=== PATIENT | female | born 1990 | race Caucasian/White ===

== ENCOUNTER 2018-12-29 08:56 | Outpatient (CLI) | payer BC ==
[2018-12-29 09:50] LABS: URINE AMPHETAMINES SCREEN NEGATIVE; URINE BARBITURATES SCREEN NEGATIVE; URINE BENZODIAZEPINES SCREEN NEGATIVE; URINE COCAINE SCREEN NEGATIVE; URINE MARIJUANA (THC) SCREEN NEGATIVE; URINE METHADONE SCREEN NEGATIVE; URINE PHENCYCLIDINE SCREEN NEGATIVE
[2018-12-29 09:54] LABS: UR PRO/CREAT RATIO RESULT 0.6 mg/mg (0.0-0.2); URINE CREATININE 24.2 mg/dL (16-327)
[2018-12-29 10:11] LABS: ABSOLUTE EOSINOPHILS # (AUTO) 0.1 10^3/uL (0.0-0.6); ABSOLUTE LYMPHOCYTES (AUTO) 1.5 10^3/uL (0.5-4.7); ABSOLUTE MONOCYTES (AUTO) 0.7 10^3/uL (0.1-1.4); BASOPHILS % (AUTO) 0.2 % (0-2); EOSINOPHILS % (AUTO) 0.8 % (0-6); HEMATOCRIT 40.4 % (36.0-47.0); HEMOGLOBIN 13.8 g/dL (12.0-15.5); LYMPHOCYTES % (AUTO) 18.4 % (13-45); MEAN CORPUSCULAR HEMOGLOBIN 30.8 pg (27.0-33.4); MEAN CORPUSCULAR HGB CONC 34.2 g/dL (32.0-36.0); MEAN CORPUSCULAR VOLUME 90 fl (80-97); MONOCYTES % (AUTO) 8.2 % (3-13); PLATELET COUNT 119 10^3/uL (150-450); RED BLOOD COUNT 4.49 10^6/uL (3.72-5.28); RED CELL DISTRIBUTION WIDTH 14.4 % (11.5-14.0); SEGMENTED NEUTROPHILS % (AUTO) 72.4 % (42-78); TOTAL CELLS COUNTED % (AUTO) 100 %; WHITE BLOOD COUNT 8.3 10^3/uL (4.0-10.5)
[2018-12-29 10:32] LABS: ALBUMIN 3.3 g/dL (3.5-5.0); ALKALINE PHOSPHATASE 161 U/L (38-126); ANION GAP 8 (5-19); ASPARTATE AMINO TRANSFERASE 29 U/L (14-36); BILIRUBIN,DIRECT 0.1 mg/dL (0.0-0.4); BILIRUBIN,TOTAL 0.3 mg/dL (0.2-1.3); BLOOD UREA NITROGEN 7 mg/dL (7-20); CALCIUM 8.9 mg/dL (8.4-10.2); CARBON DIOXIDE 21 mmol/L (22-30); CHLORIDE 106 mmol/L (98-107); GLUCOSE 86 mg/dL (75-110); TOTAL PROTEIN 5.6 g/dL (6.3-8.2); URIC ACID 4.8 mg/dL (2.5-6.2)
--- NOTE | 2018-12-29 11:00 | Progress Note ---
Provider Note Provider Note: c/w dr argueta about asymptomatic for pre-e, low platelet and high pr/cr. he advised 24h urine to return to [facility] tomorrow with BP checks and 24h urine result.
== END 2018-12-29 11:05 | disposition home or self-care (01) ==
LOC: LC 08:56
PROVIDERS: ATTEND Obstetrics & Gynecology Gynecology
PROC: 4A1HXCZ Monitoring of Products of Conception, Cardiac Rate, External Approach (ICD-10-PCS; principal; 2018-12-29)
DX: Z36.89 Encounter for other specified antenatal screening (principal)
CPT/HCPCS: 36415; 80053; 80307; 82570; 83615; 84156; 84550; 85025

== ENCOUNTER 2018-12-30 11:43 | Outpatient (CLI) | payer BC ==
[2018-12-30 12:40] LABS: 24 HOUR URINE PROTEIN RESULT 165 mg/day (42-225)
--- NOTE | 2018-12-30 12:59 | Non Stress Test Report ---
Non Stress Test Datetime Report Generated by CPN: 12/30/2018 12:58 DEMOGRAPHIC Test Number: 1 EGA NST: 38.3 INDICATION Indication for Study: Ordered by Provider MONITORING Monitor Explained: Monitor Explained; Test Explained; Patient Verbalized Understanding Time on Monitor: 12/30/2018 12:12 Time off Monitor: 12/30/2018 12:45 NST Duration: 33 NST INTERVENTIONS NST Interventions: PO Hydration; Reposition Patient Physician Notified NST: JCox, CNM BABY A: [id number] BABY A Movement : Present Contraction Frequency : None FHR Baseline : 145 Accelerations : 15X15 Decelerations : None Variability : Moderate 6-25bpm NST Review: Meets Criteria for Reactive NST NST Review and Verified By : ELIEZER Cordoba Results: Reactive NST REPORT Report Trigger: Send Report
== END 2018-12-30 12:50 | disposition home or self-care (01) ==
LOC: LC 11:43
PROVIDERS: ATTEND Student in an Organized Health Care Education/Training Program
PROC: 4A1HXCZ Monitoring of Products of Conception, Cardiac Rate, External Approach (ICD-10-PCS; principal; 2018-12-30)
DX: Z34.83 Encounter for supervision of other normal pregnancy, third trimester (principal)
CPT/HCPCS: 59025; 84156

== ENCOUNTER 2018-12-31 22:19 | Outpatient (CLI) | payer BC ==
[2018-12-31 22:55] LABS: APPEARANCE,URINE CLEAR; BILIRUBIN,URINE NEGATIVE (NEGATIVE); COLOR,URINE STRAW; GLUCOSE, URINE NEGATIVE (NEGATIVE); KETONES,URINE NEGATIVE (NEGATIVE); LEUKOCYTE ESTERASE,URINE TRACE (NEGATIVE); NITRITE,URINE NEGATIVE (NEGATIVE); PROTEIN,URINE NEGATIVE (NEGATIVE); URINE SPECIFIC GRAVITY 1.009; UROBILINOGEN,URINE NEGATIVE mg/dL (<2.0)
[2018-12-31 23:12] LABS: URINE AMPHETAMINES SCREEN NEGATIVE; URINE BARBITURATES SCREEN NEGATIVE; URINE BENZODIAZEPINES SCREEN NEGATIVE; URINE COCAINE SCREEN NEGATIVE; URINE MARIJUANA (THC) SCREEN NEGATIVE; URINE METHADONE SCREEN NEGATIVE; URINE PHENCYCLIDINE SCREEN NEGATIVE
--- NOTE | 2019-01-01 00:02 | Non Stress Test Report ---
Non Stress Test Datetime Report Generated by CPN: 01/01/2019 00:01 DEMOGRAPHIC EGA NST: 38.4 INDICATION Indication for Study: Ordered by Provider; Other Indication for Study (NST) Other: LC URINE RESULTS Urine Protein, NST: Negative Urine Ketones - NST: Negative Urine Glucose - NST: Negative Urine Blood - NST: Positive MONITORING Monitor Explained: Monitor Explained; Test Explained; Patient Verbalized Understanding Time on Monitor: 12/31/2018 22:39 Time off Monitor: 12/31/2018 23:14 NST Duration: 35 NST INTERVENTIONS NST Interventions: PO Hydration Physician Notified NST: Anderon BABY A: [id number] BABY A Movement : Present Contraction Frequency : 1-4 FHR Baseline : 125 Accelerations : 15X15 Decelerations : None Variability : Moderate 6-25bpm NST Review: Meets Criteria for Reactive NST NST Review and Verified By : Francy Robison RN NST Results: Reactive NST REPORT Report Trigger: Send Report
[2019-01-01] MEDS ORDERED: HYDROXYZINE PAMOATE 50 MG CAPSULE PO ONE (01:31)
[2019-01-01] MEDS ORDERED: HYDROXYZINE PAMOATE 50 MG CAPSULE ONE (01:33)
== END 2019-01-01 01:45 | disposition home or self-care (01) ==
LOC: LC 22:19
PROVIDERS: ATTEND Obstetrics & Gynecology
PROC: 4A1HXCZ Monitoring of Products of Conception, Cardiac Rate, External Approach (ICD-10-PCS; principal; 2018-12-31)
DX: O47.1 False labor at or after 37 completed weeks of gestation (principal); Z3A.38 38 weeks gestation of pregnancy
CPT/HCPCS: 59025; 80307; 81001

== ENCOUNTER 2019-01-04 05:38 | Inpatient (IN) | payer BC ==
[2019-01-04] MEDS ORDERED: RINGERS SOLUTION,LACTATED 1,000 ML IV PRN (06:00)
[2019-01-04] MEDS ORDERED: OXYTOCIN/NORMAL SALINE 20 UNIT/1,000 ML RTUINJ IV PRN ×2 (06:07→17:51)
[2019-01-04] MEDS ORDERED: LIDOCAINE 1% INJ-PF (10 MG/ML) 30 ML SDV ONE (06:23)
[2019-01-04] MEDS ORDERED: OXYTOCIN/NORMAL SALINE 20 UNIT/1,000 ML RTUINJ ONE (06:23)
[2019-01-04] MEDS ORDERED: MISOPROSTOL 0.2 MG TABLET ONE (06:23)
[2019-01-04] MEDS ORDERED: PENICILLIN G-K 5 MILLION UNIT VIAL ONE ×3 (06:23→14:43)
[2019-01-04] MEDS ORDERED: PENICILLIN G POTASSIUM 5,000,000 UNIT in DEXTROSE 5%-WATER 100 ML IV ONE (06:32)
[2019-01-04 07:54] LABS: ABSOLUTE EOSINOPHILS # (AUTO) 0.1 10^3/uL (0.0-0.6); ABSOLUTE LYMPHOCYTES (AUTO) 1.5 10^3/uL (0.5-4.7); ABSOLUTE MONOCYTES (AUTO) 0.7 10^3/uL (0.1-1.4); ABSOLUTE NEUT (AUTO) 7.6 10^3/uL (1.7-8.2); BASOPHILS % (AUTO) 0.2 % (0-2); EOSINOPHILS % (AUTO) 0.7 % (0-6); HEMATOCRIT 39.2 % (36.0-47.0); HEMOGLOBIN 13.4 g/dL (12.0-15.5); LYMPHOCYTES % (AUTO) 15.3 % (13-45); MEAN CORPUSCULAR HEMOGLOBIN 30.8 pg (27.0-33.4); MEAN CORPUSCULAR HGB CONC 34.1 g/dL (32.0-36.0); MEAN CORPUSCULAR VOLUME 90 fl (80-97); MONOCYTES % (AUTO) 7.5 % (3-13); PLATELET COUNT 109 10^3/uL (150-450); RED BLOOD COUNT 4.34 10^6/uL (3.72-5.28); RED CELL DISTRIBUTION WIDTH 14.4 % (11.5-14.0); SEGMENTED NEUTROPHILS % (AUTO) 76.3 % (42-78); TOTAL CELLS COUNTED % (AUTO) 100 %
[2019-01-04] MEDS ORDERED: EPHEDRINE SULFATE INJ 50 MG/1 ML AMPULE ONE (07:59)
[2019-01-04] MEDS ORDERED: BUPIVACAINE HCL 0.25 % INJ/PF (2.5 MG/1 ML) 30 ML VIAL ONE (08:00)
[2019-01-04] MEDS ORDERED: FENTANYL/BUPIVACAINE/NS/PF 300 MCG/150 ML RTUINJ EPI ONE (08:00)
--- NOTE | 2019-01-04 08:01 | Admission Physical ---
Datetime Report Generated by CPN: 01/04/2019 08:01 CURRENT ADMISSION Chief Complaint: Uterine Contractions; Suspected Ruptured Membranes Indication for Induction: Not Applicable Admit Impression : Term, Intrauterine Admit Plan: Admit to Unit; Initiate Labor Protocol ALLERGIES Medication Allergies: No Medication Allergies: No Known Allergies (01/04/2019) Latex: No Latex Allergies OBSTETRICAL HISTORY EDC: 01/10/2019 00:00 : 2 Para: 0 Term: 0 : 0 SAB: 1 IAB: 0 Ectopic: 0 Livin Cesareans: 0 VBACs: 0 Multiple Births: 0 Gestational Diabetes: No Rh Sensitization: No Incompetent Cervix: No ISIDORO: No Infertility: No ART Treatment: No Uterine Anomaly: No IUGR: No Hx Previous C/S: No Macrosomia: No Hx Loss/Stillborn: No PIH: No Hx : No Placenta Previa/Abruption: No Depression/PP Depression: No PTL/PROM: No Post Hemorrhage: No Current Procedures: Ultrasound; NST Obstetrical History Comments: G1 - SAB (04/2016) G2 - Current SEE RECORDS Alcohol: No Marijuana : No Cocaine: No Other Illicit Drugs: No Cigarettes: Never Smoker. [id number] MEDICAL HISTORY Diabetes: No Blood Transfusion: No Pulmonary Disease (Asthma, TB): Yes Breast Disease: No Hypertension: No Flocculator Operator Surgery: No Heart Disease: No Hosp/Surgery: Yes Autoimmune Disorder: No Anesthetic Complications: No Kidney Disease: No Abnormal Pap Smear: No Neuro/Epilepsy: No Psychiatric Disorders: No Other Medical Diseases: No Hepatitis/Liver Disease: No Significant Family History: No Varicosities/Phlebitis: No Trauma/Violence : No Thyroid Dysfunction: No Medical History Comments: Allergy Induced Asthma; Sx: Cyst Removal from Coccyx, Tonsillectomy, [place] Teeth INFECTIOUS HISTORY Gonorrhea: No Genital Herpes: No Chlamydia: No Tuberculosis: No Syphilis: No Hepatitis: No HIV/AIDS Exposure: No Rash or Viral Illness: No HPV: No PHYSICAL EXAM General: Normal HEENT: Normal Neurologic: Normal Thyroid: Normal Heart: Normal Lungs: Normal Breast: Normal Back: Normal Abdomen: Normal Genitourinary Exam: Normal Extremities: Normal DTRs: Normal Pelvic Type: Adequate Vital Signs: Reviewed; Within Normal Limits VAGINAL EXAM Dilatation: 5 Effacement: 80 Station: -2 Contraction Comments: q 2-3 MEMBRANES Pooling: Positive Membranes: Ruptured Amniotic Fluid Color: Clear FETUS A EGA: 39.1 Monitoring: External US FHR- Baseline: 130s Variability: Moderate 6-25bpm Accelerations: 15X15 Decelerations: None Admit Comment: presents to L_D c/o ROM last night at 1930. GBS Neg. Pt will be ruptured for 18 hrs soon. Will start antibiotics at that point. She reports good movement. PLANS FOR LABOR AND DELIVERY Labor and Delivery: None Pain Management: Epidural Feeding Preference: Breast Benefit of Breast Feed Discussed: Yes Circumcision: Yes INFORMED CONSENT Signature: with User ID: [email or web address]
[2019-01-04 08:31] LABS: URINE AMPHETAMINES SCREEN NEGATIVE; URINE BARBITURATES SCREEN NEGATIVE; URINE BENZODIAZEPINES SCREEN NEGATIVE; URINE COCAINE SCREEN NEGATIVE; URINE MARIJUANA (THC) SCREEN NEGATIVE; URINE METHADONE SCREEN NEGATIVE; URINE PHENCYCLIDINE SCREEN NEGATIVE
[2019-01-04 08:38] LABS: APPEARANCE,URINE CLEAR; BILIRUBIN,URINE NEGATIVE (NEGATIVE); COLOR,URINE YELLOW; GLUCOSE, URINE NEGATIVE (NEGATIVE); KETONES,URINE NEGATIVE (NEGATIVE); LEUKOCYTE ESTERASE,URINE NEGATIVE (NEGATIVE); NITRITE,URINE NEGATIVE (NEGATIVE); PROTEIN,URINE NEGATIVE (NEGATIVE); URINE SPECIFIC GRAVITY 1.025; UROBILINOGEN,URINE NEGATIVE mg/dL (<2.0)
[2019-01-04] MEDS: PENICILLIN G POTASSIUM 2,500,000 UNIT in DEXTROSE 5%-WATER 50 ML IV SCH ×2 (10:17→14:50)
--- NOTE | 2019-01-04 11:19 | Warning Signs in Babies ---
VOD Warning Signs Datetime Report Generated by [facility]: 01/04/2019 11:18 VOD#[id number] -Warning Signs in Babies: Viewed with Parent(s)/Family (12/30/2018 11:37:Eladia Akins RN)
[2019-01-04] MEDS ORDERED: MEASLES,MUMPS&RUBELLA VACC/PF 0.5 ML VIAL SUBCUT PRN (17:51)
[2019-01-04] MEDS ORDERED: ACETAMINOPHEN 650 MG SUPP.RECT PR PRN (17:51)
[2019-01-04] MEDS ORDERED: NA PHOS,M-B/NA PHOS,DI-BA (ADULT) 133 ML ENEMA PR PRN (17:51)
[2019-01-04] MEDS ORDERED: GLYCERIN/WITCH HAZEL LEAF 1 EACH MED..WIPE TP PRN (17:51)
[2019-01-04] MEDS ORDERED: BENZOCAINE/MENTHOL AEROSOL SPRAY 56 ML TOP PRN (17:51)
[2019-01-04] MEDS ORDERED: PROMETHAZINE HCL INJ 25 MG/1 ML VIAL IV PRN (17:51)
[2019-01-04] MEDS ORDERED: PROMETHAZINE HCL 25 MG TABLET PO PRN (17:51)
[2019-01-04] MEDS ORDERED: DIPH/PERTUSS(ACELL)/TETANUS VAC/PF 0.5 ML SYR (>=10YO) IM PRN (17:51)
[2019-01-04] MEDS ORDERED: DIBUCAINE 1% OINTMENT 56 GM TP PRN (17:51)
[2019-01-04] MEDS ORDERED: ACETAMINOPHEN WITH CODEINE #3 TABLET PO PRN ×2 (17:51)
[2019-01-04] MEDS ORDERED: DIPHENHYDRAMINE HCL 25 MG CAPSULE PO PRN (17:51)
[2019-01-04] MEDS ORDERED: MAGNESIUM HYDROXIDE SUSP 30 ML UDCUP PO PRN (17:51)
[2019-01-04] MEDS ORDERED: PROMETHAZINE HCL 25 MG SUPP.RECT PR PRN (17:51)
[2019-01-04] MEDS ORDERED: PSEUDOEPHEDRINE HCL 30 MG TABLET PO PRN (17:51)
[2019-01-04] MEDS ORDERED: IBUPROFEN 800 MG TABLET ONE (18:17)
[2019-01-04] MEDS: IBUPROFEN 800 MG TABLET PO SCH (18:25)
[2019-01-04] MEDS ORDERED: ACETAMINOPHEN WITH CODEINE #3 TABLET ONE (20:07)
--- NOTE | 2019-01-04 23:07 | Delivery Summary ---
Del Sum A-C Datetime Report Generated by CPN: 01/04/2019 23:06 DELIVERY PERSONNEL DELIVERY PERSONNEL: [id number] Delivery Doctor:: Airam Ferrell MD Nurse Appliance Fixer Certified:: Leonor Alcaraz CNM Labor and Delivery Nurse:: DAVID Edwards Labor and Delivery Nurse:: Eladia Akins RN Nursery Nurse:: Clarissa Khanna RN Icer Machine Operator/NETWORK SYSTEMS OPERATOR: Rebecca Lepe CNA II Additional Personnel: : Eladia Akins RN MATERNAL INFORMATION Delivery Anesthesia: Epidural Medications After Delivery: Pitocin Drip 20 Units/1000ml NSS Estimated Blood Loss (ml): 250 Maternal Complications: Prolonged Second Stage > 2 Hrs LABOR SUMMARY EDC: 01/10/2019 00:00 No. Babies in Womb: 1 Attempted: No Labor Anesthesia: Epidural LABOR INFORMATION Reason for Induction: Gestational Hypertension Onset of Labor: 01/04/2019 10:40 Complete Dilatation: 01/04/2019 14:53 Oxytocin: Induction Group B Beta Strep: negative Antibiotics # of Doses: 3 Antibiotics Time of Last Dose: 15:11 Name of Antibiotic Given: Pfizerpen Steroids Given: None Reason Steroids Not Administered: Not Applicable MEMBRANES Membranes Rupture Method: Spontaneous Rupture of Membranes: 01/03/2019 19:30 Length of Rupture (hr): 22.28 Amniotic Fluid Color: Moderate Meconium Amniotic Fluid Amount: Moderate Amniotic Fluid Odor: None STAGES OF LABOR Stage 1 hr: 4 Stage 1 min: 13 Stage 2 hr: 2 Stage 2 min: 54 Stage 3 hr: 0 Stage 3 min: 4 Total Time in Labor hr: 7 Total Time in Labor min: 11 VAGINAL DELIVERY Episiotomy: None Laceration #1: Perineal Laceration Extension #1: Second Degree Laceration #2: None Laceration Extension #2: N/A Laceration #3: None Laceration Extension #3: N/A Laceration Repair: Yes Laceration Repair Note: Second degree perineal laceration repaired in usual fashion with 3-0 chromic suture. Sponge Count Correct: Vaginal Sweep Performed Sharps Count Correct: N/A BABY A INFORMATION Infant Delivery Date/Time: 01/04/2019 17:47 Method of Delivery: Vaginal Born in Route : No : N/A Forceps: N/A Vacuum Extraction: Successful Shoulder Dystocia : No ASSISTED DELIVERY BABY A Indication for Assisted Delivery: Maternal fatigue Catheter Prior to Procedure: No Station Vacuum/Forcep Apply: Position Vacuum/Forcep Apply: Left Occipital Anterior Vacuum Number of Pulls: 3 Vacuum Number of PopOffs: 0 Vacuum Maximum Pressure Obtained: 550 Reduce Pressure btwn Ctx: Yes Vacuum Distribution Specialist: kiwi Vacuum/Forceps Comment: delivery with three kiwi pulls with reduction between contraction PRESENTATION/POSITION BABY A Presentation: Cephalic Cephalic Presentation: Vertex Vertex Position: Left Occipital Anterior Breech Presentation: N/A PLACENTA INFORMATION BABY A Placenta Delivery Time : 01/04/2019 17:51 Placenta Method of Delivery: Spontaneous Placenta Status: Delivered SCORES BABY A Heart Rate 1 min: >100 bpm Resp Effort 1 min: Good Cry Reflex Irritability 1 min: Cough or Sneeze or Pulls Away Muscle Tone 1 min: Active Motion Color 1 min: Body [place], Extremities Blue Resuscitation Effort 1 min: Tactile Stimulation SCORE 1 MIN: 9 Heart Rate 5 min: >100 bpm Resp Effort 5 min: Good Cry Reflex Irritability 5 min: Cough or Sneeze or Pulls Away Muscle Tone 5 min: Active Motion Color 5 min: Body [place], Extremities Blue Resuscitation Effort 5 min: Tactile Stimulation SCORE 5 MIN: 9 INFORMATION BABY A Gestational Age at Delivery: 39.1 Gestational Status: Full Term- 39- 40.6 Weeks Infant Outcome : Liveborn Infant Condition : Stable Infant Sex: Male IDENTIFICATION BABY A Infant Verification Date/Time: 01/04/2019 18:14 ID Band Number: [id number] Mother's Name Verified: Yes Infant RN Verifying Infant: B Akins RN Additional Verifying Personnel: [facility] WEIGHT/LENGTH BABY A Birthweight (gm): 3667 Weight (lb): 8 Infant Weight (oz): 1 Length (in): 20.25 Length (cm): 51.44 CORD INFORMATION BABY A No. Cord Vessels: 3 Nuchal Cord : N/A Cord Blood Taken: Yes-For Eval (Mom's Blood Type - or O+) Infant Suction: Mouth; Nose ASSESSMENT BABY A Infant Complications: Meconium Physical Findings at Delivery: Caput Succedaneum; Molding of the Head; Bruising Respirations: Appears Normal Skin to Skin: Yes Pilot Boat Operator/ALS Called : No Care By: R Jey RN Transferred To: Remains with Mother BABY B INFORMATION : N/A SIGNATURES Signature: with User ID: [email or web address]
[2019-01-05] MEDS: FERROUS SULFATE 325 MG TABLET PO SCH ×3 (03:19→17:22)
[2019-01-05] MEDS: DOCUSATE SODIUM 100 MG CAPSULE PO SCH ×3 (03:19→17:22)
[2019-01-05] MEDS: FAMOTIDINE 20 MG TABLET PO SCH ×3 (03:20→22:00)
[2019-01-05] MEDS: IBUPROFEN 800 MG TABLET PO SCH ×3 (03:20→17:22)
[2019-01-05 06:38] LABS: HEMATOCRIT 37.3 % (36.0-47.0); HEMOGLOBIN 12.8 g/dL (12.0-15.5); MEAN CORPUSCULAR HEMOGLOBIN 30.9 pg (27.0-33.4); MEAN CORPUSCULAR HGB CONC 34.4 g/dL (32.0-36.0); MEAN CORPUSCULAR VOLUME 90 fl (80-97); PLATELET COUNT 104 10^3/uL (150-450); RED BLOOD COUNT 4.14 10^6/uL (3.72-5.28); RED CELL DISTRIBUTION WIDTH 14.3 % (11.5-14.0); WHITE BLOOD COUNT 12.3 10^3/uL (4.0-10.5)
[2019-01-05] MEDS: PRENATAL VITAMIN W DHA CAPSULE PO SCH (10:41)
[2019-01-05] MEDS: SENNOSIDES/DOCUSATE 8.6-50 MG 1 EACH TABLET PO SCH (10:41)
--- NOTE | 2019-01-05 10:53 | PDOC PROGRESS REPORT ---
Subjective-OB Progress Note for:: 01/05/19 Subjective: Pt doing well, no concerns. She reports feeling well, no heavy bleeding. Regular diet, voiding without difficulty. Physical Exam (OB) Vital Signs: Temp Pulse Resp BP Pulse Ox 97.8 F 95 14 121/70 97 01/05/19 08:05 01/05/19 08:05 01/05/19 08:05 01/05/19 08:05 01/05/19 08:05 Intake & Output 01/04/19 01/05/19 01/06/19 06:59 06:59 06:59 Weight 88.9 kg - PIH/Pre-Eclampsia DTR's: 1 + Clonus: Negative Headache: Absent Epigastric Pain: No Visual Changes: No - Lochia Lochia Amount: Scant < 10 ml Lochia Color: Rubra/Red - Abdomen Description: Soft, Round Hernia Present: No Fundal Description: Firm, Midline Fundal Height: u/u - u/2 Objective-Diagnostic Laboratory: 01/05/19 06:27 01/05/19 01/05/19 06:27 06:27 WBC 12.3 H RBC 4.14 Hgb 12.8 Hct 37.3 MCV 90 MCH 30.9 MCHC 34.4 RDW 14.3 H Plt Count 104 L Blood Type B NEGATIVE Assessment and Plan(PN) - Assessment and Plan (1) Normal course Is this a current diagnosis for this admission?: Yes (2) Vacuum-assisted vaginal delivery Is this a current diagnosis for this admission?: Yes - Time Spent with Patient Time with patient: Less than 15 minutes Medications reviewed and adjusted accordingly: Yes - Disposition Anticipated Discharge: Home Within: within 24 hours
[2019-01-06] MEDS: IBUPROFEN 800 MG TABLET PO SCH ×2 (02:17→09:58)
[2019-01-06 07:56] VITALS: BP 132/81
--- NOTE | 2019-01-06 08:30 | PDOC DISCHARGE SUMMARY ---
Final Diagnosis Discharge Date: 01/06/19 - PP Day #2, doing well, no complaints, B negative, Rubella Immune - Final Diagnosis (1) Normal course Is this a current diagnosis for this admission?: Yes (2) Vacuum-assisted vaginal delivery Is this a current diagnosis for this admission?: Yes Discharge Data - Discharge Medication Prescriptions: Ibuprofen [Motrin 800 mg Tablet] 800 mg PO Q8A #60 tablet Home Medications: Vit No.130/Iron/Folic [ Tablet] 1 each PO DAILY 12/30/18 Ibuprofen [Motrin 800 mg Tablet] 800 mg PO Q8A #60 tablet 01/06/19 Reason(s) for Admission: Onset of Labor Admission Note: Antibiotics given for prolonged ROM Procedures: Ultrasound Intrapartum Procedure(s): Vacuum Extraction Complication(s): Laceration-Perineal Laceration-Degree: 2nd - Diagnosis Test Laboratory: Temp Pulse Resp BP Pulse Ox 97.9 F 103 H 14 132/81 H 99 01/06/19 07:44 01/06/19 07:44 01/06/19 07:44 01/06/19 07:44 01/06/19 07:44 01/04/19 01/04/19 01/05/19 06:00 07:36 06:27 RBC 4.34 4.14 Hgb 13.4 12.8 Hct 39.2 37.3 Urine Opiates Screen NEGATIVE - Discharge information/Instructions Discharge Activity: Activity As Tolerated, No Lifting Over 10 Pounds, Pelvic Rest Discharge Diet: As Tolerated, Regular Disposition: HOME, SELF-CARE Follow up with: [facility] in: 4, Weeks
[2019-01-06] MEDS: PRENATAL VITAMIN W DHA CAPSULE PO SCH (09:58)
[2019-01-06] MEDS: FERROUS SULFATE 325 MG TABLET PO SCH (09:58)
[2019-01-06] MEDS: SENNOSIDES/DOCUSATE 8.6-50 MG 1 EACH TABLET PO SCH (09:58)
[2019-01-06] MEDS: DOCUSATE SODIUM 100 MG CAPSULE PO SCH (09:58)
[2019-01-06] MEDS: FAMOTIDINE 20 MG TABLET PO SCH (09:59)
== END 2019-01-06 10:50 | disposition home or self-care (01) | DRG 807 ==
LOC: LR 05:38 → 2S 23:23
PROVIDERS: ADMIT Obstetrics & Gynecology; ATTEND Obstetrics & Gynecology
PROC: 10D07Z6 Extraction of Products of Conception, Vacuum, Via Natural or Artificial Opening (ICD-10-PCS; principal; 2019-01-04)
PROC: 0KQM0ZZ Repair Perineum Muscle, Open Approach (ICD-10-PCS; 2019-01-04)
PROC: 3E0234Z Introduction of Serum, Toxoid and Vaccine into Muscle, Percutaneous Approach (ICD-10-PCS; 2019-01-04)
DX: O13.4 Gestational [pregnancy-induced] hypertension without significant proteinuria, complicating childbirth (principal); Z37.0 Single live birth; O75.81 Maternal exhaustion complicating labor and delivery; O63.1 Prolonged second stage (of labor); O26.893 Other specified pregnancy related conditions, third trimester; O77.0 Labor and delivery complicated by meconium in amniotic fluid; J45.909 Unspecified asthma, uncomplicated; Z3A.39 39 weeks gestation of pregnancy; O99.52 Diseases of the respiratory system complicating childbirth; O70.1 Second degree perineal laceration during delivery; Z67.21 Type B blood, Rh negative
CPT/HCPCS: 36415; 80307; 81005; 85025; 85027; 85461; 86592; 86850; 86900; 86901; 94760; J2540; J2590; J2790; J3010; J3490; J7060